=== PATIENT | male | born 1985 | race Caucasian/White ===

== ENCOUNTER 2017-03-04 22:06 | Emergency (ER) | payer BC ==
[2017-03-04 22:21] VITALS: BP 141/97
--- NOTE | 2017-03-04 23:01 | EDM.PDOC ---
ED HPI GENERAL MEDICAL PROBLEM - General Chief Complaint: ENT Problem Stated Complaint: EARS ARE IN PAIN, [id number] Time Seen by Provider: 03/04/17 22:30 Source of Information: Reports: Patient History Limitations: Reports: No Limitations - History of Present Illness INITIAL COMMENTS - FREE TEXT/NARRATIVE: c/o bilateral ear pain right worse starting this [place]. Notes swimming all day. Did obtain 2 different ear products at [facility] but has not used yet. No other sx. No fever or chills. Right Ear Pain Score (Numeric/FACES): 8 Past Medical History - Past Health History Medical/Surgical History: Denies Medical/Surgical History - Past Surgical History HEENT Surgical History: Reports: Myringotomy w Tube(s) Social & Family History - Tobacco Use Smoking Status *Q: Unknown Ever Smoked - Caffeine Use Caffeine Use: Reports: Soda ED ROS ENT - Review of Systems Review Of Systems: See Below Constitutional: Reports: No Symptoms HEENT: Reports: Ear Pain. Denies: Eye Pain, Sinus Problem, Throat Pain, Vertigo Respiratory: Reports: No Symptoms Cardiovascular: Reports: No Symptoms GI/Abdominal: Reports: No Symptoms Musculoskeletal: Reports: No Symptoms Skin: Reports: No Symptoms Neurological: Reports: No Symptoms Psychiatric: Reports: No Symptoms ED EXAM, ENT - Physical Exam Exam: See Below Exam Limited By: No Limitations General Appearance: Alert, Mild Distress Eye Exam: Bilateral Eye: EOMI Ears: Normal TMs, Canal Swelling, TM Bulging. No: Canal Blood, Canal Material Nose: Normal Inspection Mouth/Throat: Normal Inspection Head: Atraumatic, Normocephalic Neck: Normal Inspection, Supple, Non-Tender Respiratory/Chest: No Respiratory Distress, Normal Breath Sounds Cardiovascular: Normal Peripheral Pulses GI/Abdominal: Normal Bowel Sounds, Soft, Non-Tender Back: Full Range of Motion Neurological: Alert, Oriented, Normal Cognition Psychiatric: Normal Affect Skin: Warm, Dry, Intact, Normal Color Course - Vital Signs Last Recorded V/S: Last Vital Signs Temp 99.6 F 03/04/17 22:20 Pulse 98 03/04/17 22:20 Resp 16 03/04/17 22:20 BP 141/97 H 03/04/17 22:20 Pulse Ox 98 03/04/17 22:20 - Orders/Labs/Meds Meds: Medications Discontinued Medications Generic Name Dose Route Start Last Admin Trade Name Freq PRN Reason Stop Dose Admin Neomycin/Polymyxin/Hydrocortisone Confirm 03/04/17 23:03 Cortisporin Otic Susp Administered 03/04/17 23:04 Dose 10 ml .ROUTE .STK-MED ONE Neomycin/Polymyxin/Hydrocortisone 10 ml 03/04/17 23:03 Cortisporin Otic Susp EARRT 03/04/17 23:04 .STK-MED ONE Departure - Departure Time of Disposition: 23:12 Disposition: Home, Self-Care 01 Condition: Good Clinical Impression: Otitis externa - Discharge Information Instructions: Otitis Externa, [id number] Referrals: PCP,None [Primary Care Provider] - Forms: ED Department Discharge Additional Instructions: tylenol or ibuprofen for discomfort hydrocrtisone/ polymyxin/ neomycin ear drops 4 four times daily for oup to one week clinic next week if not improving
[2017-03-04] MEDS ORDERED: Hydrocortisone/Neomycin/Polymyxin B Otic Susp 10 ML Bottle EARRT ONE (23:03)
[2017-03-04] MEDS ORDERED: Hydrocortisone/Neomycin/Polymyxin B Otic Susp 10 ML Bottle ONE (23:03)
== END 2017-03-04 23:20 | disposition home or self-care (01) ==
LOC: DL.ED 22:06
DX: H60.93 Unspecified otitis externa, bilateral (principal); Z96.22 Myringotomy tube(s) status
CPT/HCPCS: 99283; A9270